=== PATIENT | male | born 1950 | race Caucasian/White ===

== ENCOUNTER → 2020-05-15 07:57 | Outpatient (CLI) | payer OTHER, SELFPAY ==
--- NOTE | 2020-05-15 | DI.RAD.S_ITS ---
PROCEDURE: FL BARIUM SWALLOW W SPEECH INDICATIONS: Other dysphagia TECHNIQUE: Examination was conducted in conjunction with speech pathology per standard protocol. In the lateral projection, filming was performed of the patient swallowing. AP projection filming may also be performed with patient swallowing. COMPARISON: None. FINDINGS: Function: The oral preparatory phase appears normal, with proper containment. The subsequent oral propulsive phase, pharyngeal phase, and esophageal phase of swallowing is delayed. Flash laryngotracheal penetration. No aspiration. Severe residue. Morphology: No cricopharyngeal bar is identified. No cervical esophageal webs. No Zenker's diverticulum. No strictures. IMPRESSION: Flash laryngeal penetration. Esophageal dysmotility. Dictated by: Ramana Noguera M.D. on 05/15/2020 at 10:11 Approved by: Ramana Noguera M.D. on 05/15/2020 at 10:30
--- NOTE | 2020-05-15 10:59 | ST.SWALLOW ---
Visit Care Team Role Provider Type Phi Maldonado MD Primary Care Provider Non-Staff Specialty: Medical Address: [address] [place] [address] [address], [place], [address] Email: Aurelio Padilla MD Attending Provider Physician Referring Provider Specialty: Ear, Nose, Throat Address: [address] [place] [address] [place], [address] Email: [email or web address] Modified Barium Swallow Study COMPLIANCE TESTER Modified Barium Swallow Study Start: 05/15/20 09:12 Freq: Status: Active Protocol: Document 05/15/20 09:13 ALISSA (Rec: 05/15/20 09:29 ALISSA [email or web address]) Modified Barium Swallow Study Total Time Visit Start Time 08:30 Visit Stop Time 09:00 Total Visit Minutes [address] Padilla Reason for Referral Dysphagia Setting Setting Outpatient Care Patient Information Identification Type Name,ID Card Patient History Pt is a 70-yr-old male who goes by the name Spenser. He reported swallow difficulty for the past 10-15 yrs characterized by solids frequently sticking in his throat. He has managed this by swallowing a bit of fruit, usually orange or aniket, followed by liquid wash, which has successfully cleared the pharynx. He reports coughing with intake only if he talks while feeling food stuck in his throat. He is sometimes able to cough up the bolus and re-swallow successfully. The pt was diagnosed in Sep 2019 with GERD via endoscopy, which he is attempting to manage with Prilosec as well as following a GERD diet and lifestyle modifications. He continues to experience a salty and sour taste to his saliva and mucus and the sensation of a lump at the bottom of his throat, as well as a burning vapor sensation in his upper respiratory tract after eating. Additionally, the pt has had vocal hoarseness and frequent throat clearing since Nov 2019 , when he experienced difficulty and pain with breathing, SOB, and was diagnoses with bronchitis. He has a longer history of COPD. The pt reported no hx of stroke or neurologic disorder. History of childhood pneumonia. Subjective Observations The pt arrived on time and provided extensive case history. He followed all instructions throughout the study without difficulty. Patient Positioning Position View Lat-A/P Imaging Lateral View Textures Administered Trials Presented Thin Liquid via Spoon,Thin Liquid via Cup,[place] Liquid via Spoon,[place] Liquid via Cup,Honey Liquid via Spoon, Dysphagia Blenderized Textures ,Regular Textures Oral Phase Source: MBSIMP (TM) (C) Bolus Specific Scoring Grid Lip Closure No Impairment (WNL) Tongue Control During Bolus Hold No Impairment (WNL) Bolus Prep/Mastication No Impairment (WNL) Bolus Transport/Lingual Motion No Impairment (WNL) A/P Lingual Propulsion Delay No Additional Oral Phase Observations Oral Peripheral Exam: Mild asymmetry of face observed at rest and upon labial retraction, with left side showing reduced tone and ROM. All other structures are WNL of strength, coordination and ROM. The pt has natural dentition in excellent condition. Soft palate elevates upon phonation. Mucosal is pink and healthy appearing. Oral Phase: WNL Pharyngeal Phase Source: MBSIMP (TM) (C) Bolus Specific Scoring Grid Delayed Initiation of Pharyngeal Swallow No Soft Palate Elevation No Impairment (WNL) Tongue Base Strength/Range of Motion Mild Impairment Residue Along the Tongue Base Yes: Mild Clearance of Residue Along Tongue Base Mild Impairment Laryngeal Elevation No Impairment (WNL) Anterior Hyoid Movement Moderate Impairment Epiglottic Range of Motion Moderate Impairment Vallecular Residue Yes Clearance of Vallecular Residue Moderate Impairment Laryngeal Vestibular Closure Moderate Impairment Pharyngeal Stripping Wave Severe Impairment Pharyngeal Contraction Moderate Impairment Posterior Pharyngeal Wall Residue Yes: Trace to mild Clearance of Posterior Pharyngeal Wall Mild Impairment Residue Upper Esophageal Sphincter Opening Moderate Impairment Residue in the Pyriform Sinuses Yes: Mild-moderate Clearance of Residue in the Pyriform Mild Impairment Sinuses Pharyngoesophageal Backflow Observed No Additional Pharyngeal Phase Observations With intake of thin and nectar -thick liquids, the pt exhibited adequate hyplaryngeal elevation with minimal to no anterior excursion, minimal pharyngeal stripping wave, partial epiglottic inversion ( horizontal at greatest displacement), and minimum/ partial PES distention and duration. These impairments resulted in moderate pharyngeal residue at vallecula and pyriform sinuses , which did not clear with subsequent swallows. Additionally, airway closure was incomplete, allowing for penetration of thin liquid in both single cup (PAS 2, contrast is ejected from airway) and consecutive sips ( PAS 3, not ejected) without cough response. Improvement of hyolaryngeal excursion, pharyngeal stripping wave, epiglottic inversion and PES distension was significantly improved with increased bolus bulk (HTL , pudding and cookie). No other laryngeal penetration and no aspiration was observed with all trials. Although improved, pharyngeal residue remained even with increased bolus bulk. A/P View Textures Administered Trials Presented [place] Liquid via Cup,Pudding Thick Liquid via Spoon,Barium Tablet A/P View Observations Pharyngeal Contraction Moderate Impairment Residue Observed Valleculae Right,Valleculae Left,Pyriform Sinus Right, Pyriform Sinus Left Esophageal Function Slowed Clearing,Poor Motility, Stasis Esophageal Clearance Upright Position Moderate Impairment Additional Observations Bilateral bulging of pharyngeal wall Esophageal Observations Esophageal Function Dysmotility present resulting in slowed clearance of pudding consistency in particular, during which the pt reported sticking sensation in pharynx. Moderate pharyngeal residue was noted in vallecual and pyriform sinuses, not greater than in other trials. Barium tablet passage to stomach was timely. Clinical Impressions Dysphagia Type Moderate Pharyngeal Dysphagia Findings The pt presents with moderate pharyngeal dysphagia secondary to reduced pharyngeal stripping wave and hyolaryngeal anterior excursion, resulting in incomplete epiglottic inversion, airway closure, and PES distention and duration with consequential pharyngeal residue at vallecula and pyriform sinuses. Flash/trace penetration of thin liquid was observed in single and consecutive sips, silent in nature. Function improved significantly with increased bolus bulk, although duration of PES opening remained shortened, and residue in vallecula and pyriform sinuses also remained. Residue did not clear with subsequent dry swallows, during which overall function was again reduced. Suspect frequent throat clearing, as described by the pt, hoarseness and globus sensation result at least in part from GERD/LPR. Sticking sensation with solids may be the result of significant pharyngeal residue and/or referred sensation from esophageal dysmotility. Initial findings and feedback were provided to the pt following the study, and he was encouraged to continue with GERD precautions and incorporate aspiration precautions included in this report. Outpatient dysphagia therapy was also recommended. The pt verbalized understanding and was agreeable to recommendations. Rehabilitation Potential Good Patient Appropriate for Therapy Yes Recommendations Diet Liquids Order Thin Diet Order Regular Medication Recommendation As Tolerated Additional Dietary Needs Controlled Sips Aspiration Precautions Recommended Precautions Upright at 90 Degrees,Small Bites/Sips,Effortful Swallow, Double Swallow Additional Precautions Chew solids well. Continue GERD precautions including diet & medical tx. Treatment Plan Therapy Recommendations Outpatient Speech Therapy Additional Recommended Referrals Continue to be followed by GI for GERD and esophageal dysmotility. Compensatory Strategies Recommendations Sitting Upright (90 deg), Double Swallow,Small Bites and Sips Short Term Goals 1. The pt will perform exercises with min cues to increase pharyngeal and laryngeal muscular strength, ROM and coordination to increase hyolaryngeal excursion, epiglottic inversion, pharyngeal stripping wave, and PES distention and duration. Epic Professional Goals 1. The pt will demonstrate independent compliance with HEP and GERD precautions to improve swallow function and reduce risk of aspiration. 2. The pt will tolerate regular textures and thin liquids without s/sx of aspiration, as measured by clinical trials, pt report, and repeat instrumental evaluation if indicated. Placement Recommendation After Discharge Home
== END ==
PROVIDERS: PCP Family Medicine; Referring Provider Otolaryngology; Visit Provider Otolaryngology
DX: R13.19 Other dysphagia (principal); K22.4 Dyskinesia of esophagus; R49.0 Dysphonia; K21.9 Gastro-esophageal reflux disease without esophagitis
CPT/HCPCS: 74230; 92611

== ENCOUNTER 2020-08-02 13:30 | Outpatient (RCR) | payer OTHER, SELFPAY ==
--- NOTE | 2020-06-20 14:26 | ST.OPIE ---
Visit Care Team Role Provider Type Phi Maldonado MD Primary Care Provider Non-Staff Specialty: Medical Address: [address] [place] [address] [address], [place], [address] Email: Aurelio Padilla MD Attending Provider Physician Referring Provider Specialty: Ear, Nose, Throat Address: [address] [place] [address] [address], [place], [address] Email: [email or web address] Speech-Language Pathology Initial Evaluation MACHINE BUNCH MAKER Clinical Swallow Evaluation Start: 06/20/20 12:27 Freq: Status: Active Protocol: Document 06/20/20 13:53 ALISSA (Rec: 06/20/20 14:23 ALISSA [email or web address]) Clinical Swallow Evaluation Session Time Visit Start Time 12:30 Visit Stop Time 13:30 Total Visit Minutes 60 Visit Information Visit Number Initial Evaluation Plan of Care Dates 06/20/20 - 09/14/20 Insurance Information [employer] Medicare Advantage Referral Referring Physician Dr Padilla Reason for Referral Dysphagia Setting Assessment Location Outpatient Care Visit Type Note Type Initial Evaluation Next Note Type Next Note Type Treatment Note Patient Information Identification Type Name,ID Card History The pt is a 70-yr-old male who goes by the name Spenser and is familiar to this MACHINE BUNCH MAKER from Modified Barium Swallow Study performed 05/15/20, which revealed moderate pharyngeal dysphagia. The pt has also been followed by GI for ongoing assessment and management of GERD. The pt follows recommended GERD diet and lifestyle modifications including attempting to sleep with the head of the bed raised. He expressed difficulty accomplishing this and maintaining appropriate sleep patterns. Subjective Observations The pt arrived on time and provided updated case history. He stated that he felt his swallowing and GERD symptoms were improving, though not completed resolved. Evaluation Oral Phase Comments WNL as demonstrated via MBSS. Pharyngeal Phase Comments MBSS revealed moderate pharyngeal dysphagia secondary to reduced anterior hyolaryngeal propulsion, limited epiglottic inversion, weakened pharyngeal stripping wave, and decreased extension and duration of UES opening. This resulted in silent penetration of thin liquids into the laryngeal vestibule x2, one with ejection and once without, as well as moderate pharyngeal residue primarily at vallecula and pyriform sinuses. Subsequent dry swallows were mildly effective in clearing residue. Findings Dysphagia Type Moderate Pharyngeal Dysphagia Rehabilitation Potential Good Impressions The pt demonstrated good understanding of swallow deficits per education provided including review of MBSS video. Education and training of swallow exercises was provided orally with demonstration and in writing. Exercises target hyolaryngeal elevation/ excursion to increase airway closure, epiglottic inversion, lingual and pharyngeal muscle strengthening, and UES opening. The pt returned demonstration of all exercises , and questions were answered. The pt is well informed on LPR /GERD s/sx and precautions, including diet and lifestyle modifications. Nevertheless, further education was provided orally and in writing with thorough discussion of rationale for recommendations. The pt verbalized understanding. Diet Recommendations Liquids Order Thin Diet Order Regular Medication Recommendations As Tolerated Aspiration Precautions Recommended Precautions Upright at 90 Degrees,Small Bites/Sips,Effortful Swallow, Double Swallow Additional Precautions Chew solids very well Treatment Plan Placement Recommendations after Home,Outpatient Therapy Discharge Appropriate for Therapy Yes Therapy Recommendations Exercises to increase strength , coordination, and ROM of swallow musculature to reduce risk of aspiration and increase comfort with oral intake. Dysphagia Goals 1. The pt will perform exercises with min cues to increase pharyngeal and laryngeal muscular strength, ROM and coordination to increase hyolaryngeal excursion, epiglottic inversion, pharyngeal stripping wave, and UES distention and duration. 2. The pt will demonstrate independent compliance with HEP and GERD precautions to improve swallow function and reduce risk of aspiration. 3. The pt will tolerate regular textures and thin liquids without s/sx of aspiration, as measured by clinical trials, pt report, and repeat instrumental evaluation if indicated. MACHINE BUNCH MAKER Follow Up Up to 5 visits over 2 months
--- NOTE | 2020-06-27 11:51 | ST.IPDYTX ---
Visit Care Team Role Provider Type Phi Maldonado MD Primary Care Provider Non-Staff Specialty: Medical Address: [address] [place] [address] [address], [place], [address] Email: Aurelio Padilla MD Attending Provider Physician Referring Provider Specialty: Ear, Nose, Throat Address: [address] [place] [address] [place], [address] Email: [email or web address] CLERK Dysphagia Treatment PRICING CLERK Dysphagia Treatment Start: 06/20/20 12:27 Freq: Status: Active Protocol: Document 06/27/20 11:35 ALISSA (Rec: 06/27/20 11:50 ALISSA [email or web address]) Dysphagia Treatment Session Time Visit Start Time 10:30 Visit Stop Time 11:10 Total Visit Minutes 40 Visit Information Visit Number 1 Plan of Care Dates 06/20/20 - 09/14/20 Insurance Information [employer] Medicare Advantage Setting Assessment Location Outpatient Care Visit Type Note Type Treatment Note Next Note Type Next Note Type Treatment Note Patient Information Identification Type Name,ID Card Subjective Observations The pt arrived on time. Reported daily compliance with HEP, though not performing prescribed numbers of repetitions. He reported feeling dizzy after completing repetitions during Shaker exercise. The pt continues to adhere to GERD/LPR diet and lifestyle modifications with minimal improvement. He did have a significant case of heartburn during the night and reported feeling a lump in his throat. At start of session he felt it was residue of his breakfast; at end of session, he stated it was likely d/t acid reflux. Treatment Liquids Trialed Thin Administration Type Cup Single Sip,Self-Feeding Oral Strategies Upright at 90 degrees Treatment Activities Assessed pt's understanding of prescribed HEP tasks. Based on pt's dizziness during Shaker exercise, replaced Shaker with CTAR exercise. With training, including verbal instruction and demonstration, the pt performed task correctly. He performed 10 repetitions of all other prescribed exercises , with occasional errors in production, which were corrected. The pt performed 2 exercises (intra-oral pressure and Sarah) with water in his mouth x3, requiring multiple redirection and education RE swallow safety and risk of aspiration. With direct questioning, the pt verbalized understanding safety risks and katrina need to perform exercises with saliva only. By the end of the session, the pt demonstrated and verbalized correct performance of all exercises. Between exercises, the pt consumed thin liquid without overt s/sx of aspiration. No overt aspiration was observed during the episodes where the pt swallowed water while performing exercises. Assessment Patient Response to Treatment Fair Rehab Potential Good Assessment of Improvement The pt initially appeared resistive to instruction to perform exercises with saliva only, not water. However, after strong emphasis and direct questioning, her verbalized understanding and agreement and did perform exercises as prescribed. He was responsive to other corrective instruction, and by end of session, he both demonstrated and verbalized correct techniques. The importance of consistent practice was also emphasized, and the pt agreed to increase compliance. He exhibited safe consumption of thin liquid. Diet Recommendations Recommendations Continue Current Diet Liquids Order Thin Diet Order Regular Medication Recommendations As Tolerated Aspiration Precautions Recommended Precautions Upright at 90 Degrees,Small Bites/Sips,Effortful Swallow, Double Swallow Treatment Plan Placement Recommendation after Discharge Home,Outpatient Therapy Appropriate for Continued Therapy Yes Therapy Recommendations Exercises to increase strength , coordination, and ROM of swallow musculature to reduce risk of aspiration and increase comfort with oral intake. Dysphagia Goals 1. The pt will perform exercises with min cues to increase pharyngeal and laryngeal muscular strength, ROM and coordination to increase hyolaryngeal excursion, epiglottic inversion, pharyngeal stripping wave, and UES distention and duration. 2. The pt will demonstrate independent compliance with HEP and GERD precautions to improve swallow function and reduce risk of aspiration. 3. The pt will tolerate regular textures and thin liquids without s/sx of aspiration, as measured by clinical trials, pt report, and repeat instrumental evaluation if indicated. Follow Up Plan In 3 wks
--- NOTE | 2020-08-02 16:39 | ST.IPDYTX ---
Visit Care Team Role Provider Type Phi Maldonado MD Primary Care Provider Non-Staff Specialty: Medical Address: [address] [place] [address] [address], [place], [address] Email: Aurelio Padilla MD Attending Provider Physician Referring Provider Specialty: Ear, Nose, Throat Address: [address] [place] [address] David Glasgow, [place], [address] Email: [email or web address] LOADER DEMOLDER Dysphagia Treatment LOADER DEMOLDER Dysphagia Treatment Start: 06/20/20 12:27 Freq: Status: Active Protocol: Document 08/02/20 14:16 ALISSA (Rec: 08/02/20 14:30 ALISSA [email or web address]) Dysphagia Treatment Session Time Visit Start Time 13:30 Visit Stop Time 14:00 Total Visit Minutes 30 Visit Information Visit Number 2 Plan of Care Dates 06/20/20 - 09/14/20 Insurance Information [employer] Advantage Setting Assessment Location Outpatient Care Visit Type Note Type Discharge Summary Next Note Type Next Note Type Treatment Note Patient Information Identification Type Name,ID Card Subjective Observations The pt arrived on time. Reported mostly daily compliance with HEP, though not performing prescribed numbers of repetitions. He continues with GERD precautions and stated that his doctor is changing his medication to a stronger prescription. Treatment Liquids Trialed Thin Solids Trialed Mechanical Soft,Regular Administration Type Cup Single Sip,Self-Feeding Oral Strategies Upright at 90 degrees Pharyngeal Strategies Small Bites and Sips Treatment Activities Assessed pt's swallow safety with thin liquid, dry crackers , and string cheese. No overt s/sx of aspiration were observed. The pt tended to eat very quickly with very little fluid intake. He also attempted to talk while eating and was responsive to LOADER DEMOLDER's instructions not to and associated rationale. After consuming many bites of dry texture, he reported feeling that food was building up. This resolved with liquid intake. Skilled feedback, education and recommendations were provided, including clarification of trachea vs esophagus, as the pt frequently referred to the building up sensation as being in his wind pipe yet stated he was able to breathe during any such episode and was not coughing. Education was provided with images of these structures as well as hiatal hernia. Recommendations were made for decreased rate of intake and increased fluid intake to assist pharyngeal and esophageal clearance. He verbalized understanding and agreement and stated, I can be more mindful when I eat. Continued compliance with HEP was also recommended with pt's agreement. Discussed POC and agreed to discharge at this time. Assessment Patient Response to Treatment Good Rehab Potential Good Assessment of Improvement The pt is safely tolerating all varieties of textures and liquids with only occasional coughing or building up sensation of food in esophagus , usually occurring when the pt is distracted, eating very quickly, and/or consuming little liquid with solids. Primary impacts on swallow appear to be effects of GERD/ LPR and of reported hiatal hernia, as well as the pt's habit of eating quickly and with little liquid added to solids. He has been receptive to education and recommendations and verbalizes understanding. He has reached maximum benefit of skilled intervention, has met goals and is appropriate for discharge at this time. Recommend he continue with HEP and to be followed by PCP and GI for GERD/LPR and hiatal hernia issues. Diet Recommendations Recommendations Continue Current Diet Liquids Order Thin Diet Order Regular Medication Recommendations As Tolerated Additional Dietary Needs Controlled Sips Aspiration Precautions Recommended Precautions Upright at 90 Degrees, Alternate Liquids/Solids,Small Bites/Sips,Effortful Swallow, Double Swallow Additional Precautions Chew solids very well; Slow rate of intake Treatment Plan Placement Recommendation after Discharge Home,Outpatient Therapy Appropriate for Continued Therapy Yes Therapy Recommendations Discharge from skilled intervention at this time. Pt has met goals and is independent in HEP. Continue swallow exercises and aspiration precautions to maintain or further improve function and safety. Dysphagia Goals 1. The pt will perform exercises with min cues to increase pharyngeal and laryngeal muscular strength, ROM and coordination to increase hyolaryngeal excursion, epiglottic inversion, pharyngeal stripping wave, and UES distention and duration. GOAL MET 2. The pt will demonstrate independent compliance with HEP and GERD precautions to improve swallow function and reduce risk of aspiration. GOAL MET 3. The pt will tolerate regular textures and thin liquids without s/sx of aspiration, as measured by clinical trials, pt report, and repeat instrumental evaluation if indicated. GOAL MET
== END 2020-08-03 08:27 ==
LOC: SP 13:30
PROVIDERS: PCP Family Medicine; Referring Provider Otolaryngology; Visit Provider Otolaryngology
DX: R13.19 Other dysphagia (principal)
CPT/HCPCS: 92526; 92610